=== PATIENT | male | born 1955 | race Caucasian/White ===

== ENCOUNTER 2021-04-14 07:26 | Day surgery (SDC) | payer MEDICARE ==
[~2021-04-14 07:26] MED LIST: Midazolam 1 MG/ML 2 ML SDV ONE; Propofol 200 MG/20 ML SDV ONE; fentaNYL 100 MCG/2 ML SDV ONE
[2021-04-14] MEDS ORDERED: Sodium Chloride 0.9% 10 ML SDV IV ONE (08:00)
[2021-04-14] MEDS ORDERED: Sodium Chloride 0.9% 1,000 ML IV SCH (08:00)
[2021-04-14] MEDS ORDERED: Propofol 200 MG/20 ML SDV ONE (09:08)
--- NOTE | 2021-04-14 14:30 | OR ---
DATE OF PROCEDURE: 04/14/2021 SURGEON: Jay Roberson MD PROCEDURE: Colonoscopy. FINDINGS: 1. Ascending colon polyp, approximately 8 mm, completely removed using hot snare wire device. 2. Descending colon polyp, approximately 8 mm, completely removed using hot snare wire device. 3. Diverticulosis, moderate to severe, mostly concentrated in the sigmoid colon but throughout entire colon. COMPLICATIONS: None. SILK PRESSER: None. ANESTHESIA: MAC. PREOPERATIVE DIAGNOSIS: Screening colonoscopy. POSTOPERATIVE DIAGNOSIS: Screening colonoscopy. RISKS: Risks, benefits, alternatives, and limitations including, but not limited to infection, bleeding, perforation, false positives, and false negatives were explained to the patient and he wished to proceed. PROCEDURE IN DETAIL: The patient was placed in left lateral decubitus position. Digital rectal exam was performed without abnormality. Scope was introduced and advanced atraumatically to the ileocecal valve. A photo was taken of the appendiceal orifice. Scope was brought back to the ascending, transverse, descending colon, and retroflexed. No evidence of old or new blood. No masses. The aforementioned polyps were identified and completely removed as described above. No abnormal bleeding was noted after removal. Diverticulosis would be described as moderate to heavy throughout the entire colon, however, mostly concentrated in a classic pattern in the sigmoid colon. No abnormalities on retroflexion. Greater than 8 minutes was spent removing the scope. The prep was acceptable, approximately 90% of the luminal surface could be seen. The patient tolerated the procedure well. Jay Roberson MD /[id number]
== END 2021-04-14 10:30 | disposition home or self-care (01) ==
LOC: JP.SDS 07:26
PROVIDERS: ATTEND Surgery
DX: Z12.11 Encounter for screening for malignant neoplasm of colon (principal); D12.2 Benign neoplasm of ascending colon; D12.4 Benign neoplasm of descending colon; K57.30 Diverticulosis of large intestine without perforation or abscess without bleeding
CPT/HCPCS: 45385; J2250; J2704; J3010; J7030